=== PATIENT | female | born 1995 | race Caucasian/White ===

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

== ENCOUNTER 2017-09-29 21:39 | Emergency (ER) | payer BC ==
[~2017-09-29] VITALS: Ht 165.1 cm; Wt 67.5 kg
[2017-09-29 21:49] VITALS: BP 138/94; PULSE 102; TEMP 37; O2SAT 99; Ht 165.1 cm; Wt 67.5 kg
[2017-09-29] MEDS ORDERED: NORT10CA2 PO (22:11)
[2017-09-29] MEDS ORDERED: BCPILLS PO (22:11)
--- NOTE | 2017-09-30 00:46 | EMERGENCY ROOM VISIT NOTE ---
History First contact with patient: 21:55 Chief Complaint: FALL Stated Complaint: FALL History of Present Illness The patient is a 22 year old female who presents to the Emergency Room with complaints of injuries after she tripped and fell on campus. The patient complains mostly of an abrasion to her forehead with a mild headache. She also complains of an abrasion to her right knee and right thumb. She denies any significant discomfort of her extremities. She denies any neck pain, back pain or other significant injuries, and rates her overall discomfort a 2 out of 10 on my exam. Review of Systems 10 system review was performed and was negative except for pertinent positives and negatives as indicated in history of present illness Past Medical/Surgical History Medical Problems: (1) No significant past medical history Surgical Problems: (1) No history of previous surgery Family History Unremarkable Social History Smoking Status: Never Smoker Alcohol Use: none Marital Status: single Housing Status: lives with roommate Occupation Status: [employer] student Current/Historical Medications Scheduled Control Pills ( Control Pills), 1 TAB PO DAILY Nortriptyline (Pamelor), 10 MG PO QPM Physical Exam Vital Signs Date Time Temp Pulse Resp B/P (MAP) Pulse Ox O2 Delivery O2 Flow Rate FiO2 09/29/17 21:49 37.0 102 16 138/94 99 Room Air Physical Exam CONSTITUTIONAL: Healthy and well nourished. Alert and oriented X 3 with positive affect. Patient does not appear in any acute distress. GCS 15. HEENT: Examination shows a deep abrasion over the right central forehead region. No gross wound contamination or underlying laceration. Pupils equal, round and reactive. No subconjunctival hemorrhage, epistaxis, hemotympanum, raccoon's eyes or kennedy sign. She has no other tenderness to palpation of the facial bones. OROPHARYNX: No dental trauma noted. NECK: Full active range of motion without discomfort. RESPIRATORY: Clear to auscultation bilaterally with no wheezing, crackles, rhonchi or stridor. CARDIOVASCULAR: Regular rate and rhythm with no murmurs, rubs or gallops. GASTROINTESTINAL: Bowel sounds present in all quadrants. Soft and nontender to palpation. MUSCULOSKELETAL: Examination shows a superficial abrasion to the right anterior knee, and abrasion to the right thumb. Otherwise she has full range of motion of all joints without discomfort. Distal pulses are intact. INTEGUMENTARY: No rash or other significant dermatologic conditions noted. NEUROLOGIC: Cranial nerves II-XII grossly intact. No focal neurologic deficits noted. Upper and lower extremities are sensory intact. Negative pronator drift. No ataxia with ambulation. Medical Decision & Procedures ED Course Patient history and physical exam were performed. Nurse's notes were reviewed. Vital signs were reviewed and were normal. The patient was advised that per her symptoms, she does have a mild concussion. She was given a concussion handout. I did discuss suggested observation of concussion symptoms. I also discussed utilization of CT studies with any concerns for intracranial bleed or fracture. With shared medical decision making, the patient elected conservative management at this time. She was instructed to limit activities until symptoms improve. She was encouraged to keep all wounds clean and covered with an antibiotic ointment and dressing. She was encouraged to intermittently apply ice to areas of discomfort. Ibuprofen and Tylenol as needed for pain. Return to the emergency department for any progressively worsening symptoms. The patient was happy with plan of care, and voiced understanding of all discharge instructions, rating her discomfort a 4 out of 10 at the conclusion of my exam. Medical Decision See previous section Head Trauma GCS Score: 15 Medication Reconcilliation Current Medication List: was personally reviewed by me Blood Pressure Screening Patient's blood pressure: Normal blood pressure Impression Primary Impression: Concussion Additional Impressions: Multiple abrasions Fall from slip, trip, or stumble Contusion of right knee Departure Information Dispostion Home / Self-Care Forms HOME CARE DOCUMENTATION FORM, IMPORTANT VISIT INFORMATION Patient Instructions My [facility], ED Concussion Additional Instructions Read concussion handout. Avoid strenuous activities until all concussion symptoms resolved. Suggest avoiding Advil and other NSAIDs for now. Tylenol 1000 mg every 6-8 hours as needed for headache. Keep all wounds clean and covered with an antibiotic ointment until they heal. For the next year, apply a high SPF factor sunblock to the forehead wound to minimize scar darkening. Follow-up with your family doctor if concussion symptoms are not improving within the next week. Return to the emergency department for any progressively worsening headache, persistent vomiting, coordination problems or other concerning symptoms. FOR SCHOOL: Patient was in the emergency department from 9:30-10:30 PM for evaluation of injuries. Problem Qualifiers Primary Impression: Concussion Encounter type: initial encounter Loss of consciousness presence/duration: without LOC Qualified Codes: S06.0X0A - Concussion without loss of consciousness, initial encounter Additional Impressions: Fall from slip, trip, or stumble Encounter type: initial encounter Qualified Codes: W01.0XXA - Fall on same level from slipping, tripping and stumbling without subsequent striking against object, initial encounter Contusion of right knee Encounter type: initial encounter Qualified Codes: S80.01XA - Contusion of right knee, initial encounter
== END 2017-09-29 22:38 | disposition home or self-care (01) ==
LOC: C.EDB 21:40 → C.EDD 22:38
DX: S06.0X0A Concussion without loss of consciousness, initial encounter (principal); S80.01XA Contusion of right knee, initial encounter; S00.81XA Abrasion of other part of head, initial encounter; S60.311A Abrasion of right thumb, initial encounter; S80.211A Abrasion, right knee, initial encounter; R51 Headache; W19.XXXA Unspecified fall, initial encounter; Y92.214 College as the place of occurrence of the external cause